=== PATIENT | male | born 1930 | race Caucasian/White ===

== ENCOUNTER 2017-06-22 09:12 | Observation (INO) | payer OTHER ==
[~2017-06-22] VITALS: Ht 185.4 cm; Wt 97.1 kg
[~2017-06-22 09:12] MED LIST: AMOXICILLIN500 M1 PO; ASPIRIN325 MG PO; ATORVASTATIN CA80 MG PO; AUGMENTIN875 MG PO; AVODART0.5 MG PO; CARVEDILOL12.5 MG PO; COREG25 M1 PO; COZAAR100 MG PO; Coreg PO; Cozaar PO; DEXLANT; DIGOX125 MCG PO; DOXYCYCLINE HY100 MG PO; ERYTHROMYC1 APPLICAT BOTH EYES; Ecotrin PO; LIPITOR80 MG PO; Lipitor PO; NORVASC5 MG PO; Norvasc PO; PAIN RELIEVER325 MG PO; PERCOCET 5/31 TABLET PO; PLAVIX75 MG PO; TAMSULOSIN HCL0.4 MG PO; VITAMIN D31000 UNI2 PO; VITAMIN D31000 UNIT PO; Vitamin D PO; XARELTO15 MG PO; Xarelto PO; ZOFRAN ODT4 MG PO
[2017-06-22 10:33] LABS: EOSINOPHIL (%) 3.3 % (0-5); EOSINOPHIL COUNT 0.2 K/uL (0-0.3); HEMATOCRIT 41.7 % (38.0-50.0); IMMATURE GRANULOCYTE (%) 0.1 % (0.0-0.7); INSTRUMENT ABS NEUTROPHIL CT 5.2 K/uL; LYMPHOCYTE COUNT 1.1 K/uL (1.0-2.8); MCH 29.7 PG (29.0-34.0); MCHC 33.1 G/DL (30.0-36.0); MCV 89.7 FL (86-99); MEAN PLAT.VOLUME 10.1 uM^3 (9.0-12.4); MONOCYTE (%) 7.1 % (3-12); MONOCYTE COUNT 0.5 K/uL (0-0.8); NEUTROPHIL (%) 73.8 % (45-76); NEUTROPHIL COUNT 5.2 K/uL (1.8-6.4); PLATELET COUNT 188 K/uL (156-360); RBC DIS.WIDTH-SD 45.5 % (39-53); RED BLOOD COUNT 4.65 M/uL (4.00-5.50)
[2017-06-22 10:38] LABS: INTER. NORMALIZED RATIO 1.4; PROTHROMBIN TIME 15.5 SEC (10.2-12.9)
[2017-06-22 10:43] LABS: CHLORIDE 106 mEq/L (99-109); POTASSIUM 3.9 mEq/L (3.7-5.4); SODIUM 140 mEq/L (136-147)
[2017-06-22 10:45] LABS: GLUCOSE 152 mg/dL (70-99)
[2017-06-22 10:46] LABS: ANION GAP 11 MEQ/L (2-14)
[2017-06-22 10:49] LABS: GFR ESTIMATE (CALCULATED) > 59 mL/min/; UREA NITROGEN (BUN) 20 mg/dL (9-23)
[2017-06-22 10:54] LABS: TROP-I INTERPRETATION NEGATIVE; TROPONIN-I 0.02 ng/mL (0.0-0.30)
[2017-06-22 12:31] LABS: HDL CHOLESTEROL 39 MG/DL (Desirable>=40); LDL CHOLESTEROL 33 mg/dL (Desirable<100); NON-HDL CHOLESTEROL 48 mg/dL (Desirable<160); TOTAL CHOLESTEROL 87 mg/dL (Desirable<200); TRIGLYCERIDES 76 MG/DL (Normal: <150)
[2017-06-22 13:02] LABS: Estimated Average Glucose 151 mg/dL (70-123); HEMOGLOBIN A1c (GLYCOHEMOGLOB) 6.9 % HGB (Below 5.7)
[2017-06-22 14:54] VITALS: BP 118/71
[2017-06-22] MEDS ORDERED: ELIQUIS5 MG PO (14:56)
[2017-06-22] MEDS ORDERED: FUROSEMIDE40 MG PO (14:59)
[2017-06-22] MEDS ORDERED: JANUVIA25 M1 PO (14:59)
[2017-06-22 15:31] LABS: TROP-I INTERPRETATION NEGATIVE; TROPONIN-I 0.02 ng/mL (0.0-0.30)
[2017-06-22] MEDS ORDERED: FINASTERIDE5 MG PO (16:08)
[2017-06-22 17:06] VITALS: BP 133/74
[2017-06-22 20:44] VITALS: BP 120/71
[2017-06-22 21:08] LABS: TROP-I INTERPRETATION NEGATIVE; TROPONIN-I 0.01 ng/mL (0.0-0.30)
[2017-06-22 23:54] VITALS: BP 117/58
[2017-06-23 04:29] VITALS: BP 141/78
[2017-06-23 07:56] VITALS: BP 154/71
[2017-06-23 08:27] LABS: POINT-OF-CARE METER ID UU13113700
[2017-06-23 11:13] VITALS: BP 110/59
[2017-06-23 13:07] LABS: POINT-OF-CARE METER ID UU13113831
== END 2017-06-23 15:21 | disposition home health service (06) ==
LOC: EME 09:12 → 5WEST 11:02 → EDOF 11:02 → ENRESERV 11:06 → 5WEST 16:22 → ENPENDDIS 06-23 → 5WEST 06-23 15:21
PROVIDERS: Emergency Medicine; Internal Medicine
DX: R55 Syncope and collapse (principal); G93.9 Disorder of brain, unspecified; I65.23 Occlusion and stenosis of bilateral carotid arteries; I10 Essential (primary) hypertension; I73.9 Peripheral vascular disease, unspecified; I48.0 Paroxysmal atrial fibrillation; I48.2 Chronic atrial fibrillation; E78.5 Hyperlipidemia, unspecified; K21.9 Gastro-esophageal reflux disease without esophagitis; H91.90 Unspecified hearing loss, unspecified ear; I34.0 Nonrheumatic mitral (valve) insufficiency; Z79.01 Long term (current) use of anticoagulants; Z95.820 Peripheral vascular angioplasty status with implants and grafts
CPT/HCPCS: 70450; 70551; 70553; 71010; 80048; 80061; 82948; 83036; 84484; 85025; 85610; 85730; 93005; 93306; 93880; 95819; G0378; G8978 GP CJ; G8979 GP CH; G8980 CJ; G8987 GO CI; G8988 GO CH; G8989 GO CI

== ENCOUNTER 2017-07-06 22:12 | Inpatient (IN) | payer OTHER ==
[~2017-07-06] VITALS: Ht 185.4 cm; Wt 90.3 kg
[~2017-07-06 22:12] MED LIST changes: +DECADRON4 MG PO; +ELIQUIS5 MG PO; +FLOMAX0.4 MG PO; +FUROSEMIDE40 MG PO; +JANUVIA25 M1 PO; +PRILOSEC20 MG PO; +PROSCAR5 MG PO; +SINGULAIR10 MG PO; -TAMSULOSIN HCL0.4 MG PO
[2017-07-07 08:00] VITALS: BP 129/79
[2017-07-07 08:07] LABS: POINT-OF-CARE METER ID UU14174212
[2017-07-07 17:31] LABS: POINT-OF-CARE METER ID UU13113675
[2017-07-07 17:53] LABS: ANION GAP 11 MEQ/L (2-14); CHLORIDE 98 MEQ/L (99-109); GFR ESTIMATE (CALCULATED) > 59 mL/min/; GLUCOSE 171 mg/dL (70-99); POTASSIUM 4.9 MEQ/L (3.7-5.4); SAMPLE HEMOLYSIS CHECK 2; SAMPLE ICTERIC CHECK 0; SAMPLE LIPEMIA CHECK 0; SODIUM 134 MEQ/L (136-147); UREA NITROGEN (BUN) 40 mg/dL (9-23)
[2017-07-07 19:42] VITALS: BP 153/89
[2017-07-07 20:00] VITALS: BP 151/79
[2017-07-07 21:00] VITALS: BP 133/98
[2017-07-07 21:09] LABS: METH RESISTANT S AUREUS PCR NEGATIVE (NEGATIVE)
[2017-07-07 21:11] LABS: PROBE CHECK PASS; SPECIMEN PROCESSING CONTROL PASS
[2017-07-07 22:00] VITALS: BP 150/90
[2017-07-07 23:00] VITALS: BP 145/86
[2017-07-08] VITALS (18 sets, daily range): BP systolic 90–150; BP diastolic 66–117
[2017-07-08 05:00] LABS: HEMATOCRIT 42.2 % (38.0-50.0); MCH 29.4 PG (29.0-34.0); MCHC 34.1 G/DL (30.0-36.0); MCV 86.3 FL (86-99); PLATELET COUNT 171 K/uL (156-360); RBC DIS.WIDTH-CV 13.7 % (11.8-14.6); RED BLOOD COUNT 4.89 M/uL (4.00-5.50); WHITE BLOOD COUNT 14.7 K/uL (4.1-10.2)
[2017-07-08] MEDS ORDERED: HYDROCODON-ACE1 EAC7 PO (16:39)
[2017-07-08] MEDS ORDERED: DECADRON4 MG PO (16:39)
== END 2017-07-08 18:15 | disposition home or self-care (01) | DRG 26 ==
LOC: ENRESERV 22:12 → CANRESERV 22:12 → 2SOUTH 07-07 06:54 → 4WEST 07-07 06:54 → ENRESERV 07-07 07:10 → CANRESERV 07-07 07:10 → 2SOUTH 07-07 09:00 → ENRESERV 07-07 17:34 → 4WEST 07-07 19:30
PROVIDERS: Neurological Surgery
PROC: 00B10ZZ Excision of Cerebral Meninges, Open Approach (ICD-10-PCS; principal; 2017-07-07)
DX: D32.0 Benign neoplasm of cerebral meninges (principal); I10 Essential (primary) hypertension; I73.9 Peripheral vascular disease, unspecified; I48.0 Paroxysmal atrial fibrillation; I48.2 Chronic atrial fibrillation; N40.0 Benign prostatic hyperplasia without lower urinary tract symptoms; I34.0 Nonrheumatic mitral (valve) insufficiency; I42.9 Cardiomyopathy, unspecified; E11.9 Type 2 diabetes mellitus without complications; H40.9 Unspecified glaucoma; J44.9 Chronic obstructive pulmonary disease, unspecified; K21.9 Gastro-esophageal reflux disease without esophagitis; Z86.79 Personal history of other diseases of the circulatory system; Z95.820 Peripheral vascular angioplasty status with implants and grafts; Z86.73 Personal history of transient ischemic attack (TIA), and cerebral infarction without residual deficits
CPT/HCPCS: 36415; 70450; 70460; 80048; 82948; 85025; 85027; 87641; 88307; C1713; J0131; J0360; J0690; J1100; J1170; J2405; J2710; J3010

== ENCOUNTER 2017-07-17 05:12 | Emergency (ER) | payer OTHER ==
[~2017-07-17] VITALS: Ht 185.4 cm; Wt 88.0 kg
[~2017-07-17 05:12] MED LIST changes: +HYDROCODON-ACE1 EAC7 PO
[2017-07-17 05:48] LABS: EOSINOPHIL (%) 2.7 % (0-5); EOSINOPHIL COUNT 0.4 K/uL (0-0.3); HEMATOCRIT 46.5 % (38.0-50.0); IMMATURE GRANULOCYTE (%) 2.1 % (0.0-0.7); IMMATURE GRANULOCYTE COUNT 0.3 K/uL; INSTRUMENT ABS NEUTROPHIL CT 11.2 K/uL; LYMPHOCYTE COUNT 1.4 K/uL (1.0-2.8); MCH 29.5 PG (29.0-34.0); MCHC 33.5 G/DL (30.0-36.0); MCV 88.1 FL (86-99); MEAN PLAT.VOLUME 11.3 uM^3 (9.0-12.4); MONOCYTE (%) 8.8 % (3-12); MONOCYTE COUNT 1.3 K/uL (0-0.8); NEUTROPHIL (%) 76.8 % (45-76); NEUTROPHIL COUNT 11.2 K/uL (1.8-6.4); PLATELET COUNT 126 K/uL (156-360); PTT 31.5 SEC (25-37); RBC DIS.WIDTH-CV 14.1 % (11.8-14.6); RBC DIS.WIDTH-SD 45.4 % (39-53); RED BLOOD COUNT 5.28 M/uL (4.00-5.50); WHITE BLOOD COUNT 14.6 K/uL (4.1-10.2)
[2017-07-17 05:51] LABS: CHLORIDE 101 mEq/L (99-109); POTASSIUM 4.3 mEq/L (3.7-5.4); SODIUM 134 mEq/L (136-147)
[2017-07-17 05:52] LABS: GLUCOSE 180 mg/dL (70-99)
[2017-07-17 05:54] LABS: ANION GAP 7 MEQ/L (2-14)
[2017-07-17 05:56] LABS: GFR ESTIMATE (CALCULATED) > 59 mL/min/
[2017-07-17 05:57] LABS: UREA NITROGEN (BUN) 31 mg/dL (9-23)
[2017-07-17 06:01] LABS: TROP-I INTERPRETATION NEGATIVE; TROPONIN-I 0.02 ng/mL (0.0-0.30)
[2017-07-17 06:29] LABS: PROTHROMBIN TIME 11.3 SEC (10.2-12.9)
[2017-07-17 07:42] VITALS: BP 128/74
== END 2017-07-17 07:43 | disposition home or self-care (01) ==
LOC: EME → EDBD 05:12 → EME 07:43
PROVIDERS: Emergency Medicine
DX: R00.2 Palpitations (principal); I48.91 Unspecified atrial fibrillation; I49.3 Ventricular premature depolarization; I10 Essential (primary) hypertension; E78.5 Hyperlipidemia, unspecified; Z87.442 Personal history of urinary calculi
CPT/HCPCS: 71010; 80048; 84484; 85025; 85610; 85730; 93005; 99281; 99285

== ENCOUNTER 2017-07-22 23:43 | Inpatient (IN) | payer OTHER ==
[~2017-07-22] VITALS: Ht 185.4 cm; Wt 106.0 kg
[2017-07-23] VITALS (16 sets, daily range): BP systolic 82–134; BP diastolic 53–80
[2017-07-23 00:30] LABS: CHLORIDE 106 mEq/L (99-109); POTASSIUM 4.3 mEq/L (3.7-5.4); SODIUM 136 mEq/L (136-147)
[2017-07-23 00:32] LABS: GLUCOSE 177 mg/dL (70-99)
[2017-07-23 00:33] LABS: ANION GAP 6 MEQ/L (2-14)
[2017-07-23 00:33] LABS: EOSINOPHIL (%) 2.3 % (0-5); EOSINOPHIL COUNT 0.3 K/uL (0-0.3); IMMATURE GRANULOCYTE (%) 0.4 % (0.0-0.7); IMMATURE GRANULOCYTE COUNT 0.1 K/uL; INSTRUMENT ABS NEUTROPHIL CT 8.8 K/uL; LYMPHOCYTE COUNT 1.3 K/uL (1.0-2.8); MCH 29.5 PG (29.0-34.0); MCV 89.2 FL (86-99); MEAN PLAT.VOLUME 10.8 uM^3 (9.0-12.4); NEUTROPHIL (%) 76.8 % (45-76); NEUTROPHIL COUNT 8.8 K/uL (1.8-6.4); PLATELET COUNT 112 K/uL (156-360); RBC DIS.WIDTH-CV 14.4 % (11.8-14.6); RBC DIS.WIDTH-SD 46.5 % (39-53); WHITE BLOOD COUNT 11.5 K/uL (4.1-10.2)
[2017-07-23 00:34] LABS: TOTAL BILIRUBIN 0.6 mg/dL (0.0-1.0)
[2017-07-23 00:35] LABS: ALKALINE PHOSPHATASE 31 IU/L (3-129)
[2017-07-23 00:36] LABS: GFR ESTIMATE (CALCULATED) > 59 mL/min/
[2017-07-23 00:37] LABS: UREA NITROGEN (BUN) 46 mg/dL (9-23)
[2017-07-23 00:41] LABS: TROP-I INTERPRETATION NEGATIVE; TROPONIN-I 0.01 ng/mL (0.0-0.30)
[2017-07-23 01:19] LABS: HDL CHOLESTEROL 32 MG/DL (Desirable>=40); LDL CHOLESTEROL 26 mg/dL (Desirable<100); NON-HDL CHOLESTEROL 46 mg/dL (Desirable<160); TOTAL CHOLESTEROL 78 mg/dL (Desirable<200); TRIGLYCERIDES 100 MG/DL (Normal: <150)
[2017-07-23 01:22] LABS: ADD MIUA? YES; BILIRUBIN NEGATIVE; BLOOD MODERATE; COLOR YELLOW ((YELLOW)); GLUCOSE (STRIP) NEGATIVE; KETONES NEGATIVE; LEUKOCYTES NEGATIVE; NITRITE NEGATIVE; PROTEIN (STRIP) NEGATIVE; UROBILINOGEN 0.2 MG/DL (0.2-1.0)
[2017-07-23] MEDS ORDERED: TYLENOL PM EX-1 EACH PO (01:26)
[2017-07-23] MEDS ORDERED: ELIQUIS5 MG PO (01:27)
[2017-07-23 01:32] LABS: BACTERIA NONE SEEN /HPF; EPITHELIAL CELLS RARE /HPF; MUCUS TRACE /LPF; UCUL ADDED? NO; WHITE BLOOD CELLS 0-5 /HPF (0-5)
[2017-07-23 01:55] LABS: SPECIFIC GRAVITY 1.051 (1.000-1.030)
[2017-07-23 03:24] LABS: HEMATOCRIT 32.6 % (38.0-50.0); MCH 29.6 PG (29.0-34.0); MCHC 33.1 G/DL (30.0-36.0); MCV 89.3 FL (86-99); MEAN PLAT.VOLUME 10.6 uM^3 (9.0-12.4); PLATELET COUNT 107 K/uL (156-360); RBC DIS.WIDTH-CV 14.4 % (11.8-14.6); RED BLOOD COUNT 3.65 M/uL (4.00-5.50); WHITE BLOOD COUNT 11.4 K/uL (4.1-10.2)
[2017-07-23 06:26] LABS: SAMPLE HEMOLYSIS CHECK 0; SAMPLE ICTERIC CHECK 0; SAMPLE LIPEMIA CHECK 0
[2017-07-23 06:41] LABS: INTERNAL CONTROL VALID? YES
[2017-07-23 06:46] LABS: Estimated Average Glucose 177 mg/dL (70-123); HEMOGLOBIN A1c (GLYCOHEMOGLOB) 7.8 % HGB (Below 5.7)
[2017-07-23 07:51] LABS: FERRITIN 238 NG/ML (22-322)
[2017-07-23 08:43] LABS: POINT-OF-CARE METER ID UU13113717
[2017-07-23 10:44] LABS: POINT-OF-CARE METER ID UU14174225
[2017-07-23 10:45] LABS: HEMATOCRIT 27.7 % (38.0-50.0); MCH 30.4 PG (29.0-34.0); MCHC 33.9 G/DL (30.0-36.0); MCV 89.6 FL (86-99); MEAN PLAT.VOLUME 10.7 uM^3 (9.0-12.4); PLATELET COUNT 109 K/uL (156-360); RBC DIS.WIDTH-CV 14.8 % (11.8-14.6); RBC DIS.WIDTH-SD 47.6 % (39-53); RED BLOOD COUNT 3.09 M/uL (4.00-5.50); WHITE BLOOD COUNT 13.3 K/uL (4.1-10.2)
[2017-07-23 10:51] LABS: INTER. NORMALIZED RATIO 1.2; PROTHROMBIN TIME 13.3 SEC (10.2-12.9)
[2017-07-23 10:53] LABS: CHLORIDE 111 mEq/L (99-109); POTASSIUM 4.9 mEq/L (3.7-5.4); SODIUM 140 mEq/L (136-147)
[2017-07-23 10:54] LABS: PTT 30.9 SEC (25-37)
[2017-07-23 10:55] LABS: GLUCOSE 192 mg/dL (70-99)
[2017-07-23 10:57] LABS: ANION GAP 7 MEQ/L (2-14); TOTAL BILIRUBIN 0.7 mg/dL (0.0-1.0)
[2017-07-23 10:59] LABS: ALKALINE PHOSPHATASE 27 IU/L (3-129); GFR ESTIMATE (CALCULATED) > 59 mL/min/
[2017-07-23 11:00] LABS: UREA NITROGEN (BUN) 49 mg/dL (9-23)
[2017-07-23 14:59] LABS: HEMATOCRIT 24.2 % (38.0-50.0); MCH 29.1 PG (29.0-34.0); MCHC 32.2 G/DL (30.0-36.0); MCV 90.3 FL (86-99); MEAN PLAT.VOLUME 10.9 uM^3 (9.0-12.4); PLATELET COUNT 106 K/uL (156-360); RBC DIS.WIDTH-CV 14.8 % (11.8-14.6); RBC DIS.WIDTH-SD 48.4 % (39-53); RED BLOOD COUNT 2.68 M/uL (4.00-5.50)
[2017-07-23 17:33] LABS: INTER. NORMALIZED RATIO 1.2; PROTHROMBIN TIME 14.2 SEC (10.2-12.9)
[2017-07-23 17:36] LABS: PTT 30.4 SEC (25-37)
[2017-07-23 18:54] LABS: METH RESISTANT S AUREUS PCR POSITIVE (NEGATIVE)
[2017-07-23 18:57] LABS: PROBE CHECK PASS
[2017-07-23 20:47] LABS: HEMATOCRIT 28.2 % (38.0-50.0); MCH 29.6 PG (29.0-34.0); MEAN PLAT.VOLUME 10.9 uM^3 (9.0-12.4); PLATELET COUNT 93 K/uL (156-360); RBC DIS.WIDTH-CV 15.1 % (11.8-14.6); RBC DIS.WIDTH-SD 47.6 % (39-53); WHITE BLOOD COUNT 11.6 K/uL (4.1-10.2)
[2017-07-23 20:48] LABS: RED BLOOD COUNT 3.24 M/uL (4.00-5.50)
[2017-07-24] VITALS (24 sets, daily range): BP systolic 47–139; BP diastolic 24–100
[2017-07-24 00:56] LABS: HEMATOCRIT 26.9 % (38.0-50.0); MCH 29.9 PG (29.0-34.0); MCHC 33.8 G/DL (30.0-36.0); MCV 88.5 FL (86-99); MEAN PLAT.VOLUME 10.6 uM^3 (9.0-12.4); NRBC (%) 0.1 /100 WBC (0-0); PLATELET COUNT 103 K/uL (156-360); RBC DIS.WIDTH-CV 15.9 % (11.8-14.6); RBC DIS.WIDTH-SD 50.1 % (39-53); RED BLOOD COUNT 3.04 M/uL (4.00-5.50); WHITE BLOOD COUNT 15.5 K/uL (4.1-10.2)
[2017-07-24 04:22] LABS: HEMATOCRIT 26.4 % (38.0-50.0); MCH 29.5 PG (29.0-34.0); MCHC 33.3 G/DL (30.0-36.0); MCV 88.6 FL (86-99); MEAN PLAT.VOLUME 11.3 uM^3 (9.0-12.4); NRBC (%) 0.1 /100 WBC (0-0); PLATELET COUNT 104 K/uL (156-360); RBC DIS.WIDTH-CV 16.1 % (11.8-14.6); RBC DIS.WIDTH-SD 51.7 % (39-53); RED BLOOD COUNT 2.98 M/uL (4.00-5.50); WHITE BLOOD COUNT 16.9 K/uL (4.1-10.2)
[2017-07-24 04:37] LABS: CHLORIDE 118 mEq/L (99-109); MAGNESIUM 1.5 mg/dL (1.3-2.7); POTASSIUM 5.4 mEq/L (3.7-5.4); SODIUM 142 mEq/L (136-147)
[2017-07-24 04:39] LABS: GLUCOSE 206 mg/dL (70-99)
[2017-07-24 04:40] LABS: ANION GAP 5 MEQ/L (2-14)
[2017-07-24 04:43] LABS: GFR ESTIMATE (CALCULATED) > 59 mL/min/
[2017-07-24 04:44] LABS: UREA NITROGEN (BUN) 61 mg/dL (9-23)
[2017-07-24 09:21] LABS: HEMATOCRIT 23.9 % (38.0-50.0); MCV 89.5 FL (86-99); POINT-OF-CARE METER ID UU14314083
[2017-07-24 12:44] LABS: POINT-OF-CARE METER ID UU14314083
[2017-07-24 13:13] LABS: HEMATOCRIT 23.3 % (38.0-50.0); MCV 90.3 FL (86-99)
[2017-07-24 16:41] LABS: POINT-OF-CARE METER ID UU13113675
[2017-07-24 17:45] LABS: MCV 89.1 FL (86-99)
[2017-07-24 18:29] LABS: POINT-OF-CARE METER ID UU14162636
[2017-07-24 23:41] LABS: POINT-OF-CARE METER ID UU14162636; POINT-OF-CARE USER ID PHATLC
[2017-07-25] VITALS (13 sets, daily range): BP systolic 96–136; BP diastolic 54–69
[2017-07-25 06:05] LABS: POINT-OF-CARE METER ID UU14208751; POINT-OF-CARE USER ID PHATLC
[2017-07-25 07:44] LABS: EOSINOPHIL (%) 0.4 % (0-5); EOSINOPHIL COUNT 0.1 K/uL (0-0.3); HEMATOCRIT 24.5 % (38.0-50.0); IMMATURE GRANULOCYTE COUNT 0.2 K/uL; LYMPHOCYTE COUNT 1.3 K/uL (1.0-2.8); MCH 30.3 PG (29.0-34.0); MCHC 33.9 G/DL (30.0-36.0); MCV 89.4 FL (86-99); MEAN PLAT.VOLUME 10.3 uM^3 (9.0-12.4); MONOCYTE (%) 8.9 % (3-12); MONOCYTE COUNT 1.3 K/uL (0-0.8); NEUTROPHIL (%) 80.7 % (45-76); NRBC (%) 0.7 /100 WBC (0-0); PLATELET COUNT 86 K/uL (156-360); RBC DIS.WIDTH-CV 16.8 % (11.8-14.6); RBC DIS.WIDTH-SD 51.9 % (39-53); RED BLOOD COUNT 2.74 M/uL (4.00-5.50); WHITE BLOOD COUNT 14.9 K/uL (4.1-10.2)
[2017-07-25 07:56] LABS: INTER. NORMALIZED RATIO 1.2; PROTHROMBIN TIME 14.2 SEC (10.2-12.9)
[2017-07-25 07:59] LABS: PTT 28.7 SEC (25-37)
[2017-07-25 08:09] LABS: ANION GAP 7 MEQ/L (2-14); CHLORIDE 118 MEQ/L (99-109); GFR ESTIMATE (CALCULATED) > 59 mL/min/; GLUCOSE 162 mg/dL (70-99); SAMPLE HEMOLYSIS CHECK 0; SAMPLE ICTERIC CHECK 0; SAMPLE LIPEMIA CHECK 0; SODIUM 147 MEQ/L (136-147); UREA NITROGEN (BUN) 54 mg/dL (9-23)
[2017-07-25 08:13] LABS: POTASSIUM 4.3 MEQ/L (3.7-5.4)
[2017-07-25 13:16] LABS: POINT-OF-CARE METER ID UU14208751
[2017-07-25 16:19] LABS: MCV 90.6 FL (86-99)
[2017-07-25 17:59] LABS: POINT-OF-CARE METER ID UU14174225
[2017-07-25 23:59] LABS: POINT-OF-CARE METER ID UU14174225
[2017-07-26 00:07] VITALS: BP 111/58
[2017-07-26 00:41] LABS: HEMATOCRIT 23.2 % (38.0-50.0); MCV 87.5 FL (86-99)
[2017-07-26 03:30] VITALS: BP 106/61
[2017-07-26 06:11] LABS: POINT-OF-CARE METER ID UU14174225
[2017-07-26 06:41] LABS: HEMATOCRIT 22.9 % (38.0-50.0); MCV 87.4 FL (86-99)
[2017-07-26 07:28] VITALS: BP 110/64
[2017-07-26 07:36] LABS: ANION GAP 4 MEQ/L (2-14); CHLORIDE 115 MEQ/L (99-109); POTASSIUM 3.7 MEQ/L (3.7-5.4); SAMPLE HEMOLYSIS CHECK 0; SAMPLE ICTERIC CHECK 0; SAMPLE LIPEMIA CHECK 0; SODIUM 141 MEQ/L (136-147)
[2017-07-26 07:42] LABS: GFR ESTIMATE (CALCULATED) > 59 mL/min/; GLUCOSE 134 mg/dL (70-99); UREA NITROGEN (BUN) 39 mg/dL (9-23)
[2017-07-26 08:26] LABS: POINT-OF-CARE METER ID UU13113717
[2017-07-26 08:31] VITALS: BP 114/61
[2017-07-26 11:41] LABS: POINT-OF-CARE METER ID UU14174225
[2017-07-26 13:51] VITALS: BP 119/57
[2017-07-26 14:55] LABS: HEMATOCRIT 23.1 % (38.0-50.0); MCV 90.6 FL (86-99)
[2017-07-26 17:13] LABS: POINT-OF-CARE METER ID UU14174225
[2017-07-27 00:18] LABS: POINT-OF-CARE METER ID UU14174225
[2017-07-27 00:42] VITALS: BP 110/59
[2017-07-27 02:54] LABS: HEMATOCRIT 22.5 % (38.0-50.0); MCV 90.7 FL (86-99)
[2017-07-27 05:35] LABS: POINT-OF-CARE METER ID UU14174225
[2017-07-27 07:08] LABS: POINT-OF-CARE METER ID UU13113717
[2017-07-27 07:09] VITALS: BP 118/61
[2017-07-27 11:18] LABS: POINT-OF-CARE METER ID UU13113717
[2017-07-27 14:38] LABS: HEMATOCRIT 26.7 % (38.0-50.0); MCV 91.8 FL (86-99)
[2017-07-27 15:27] VITALS: BP 116/55
[2017-07-27 16:22] LABS: POINT-OF-CARE METER ID UU14174225
[2017-07-27 17:39] VITALS: BP 122/59
[2017-07-27 20:39] LABS: POINT-OF-CARE METER ID UU14174225
[2017-07-28] VITALS (7 sets, daily range): BP systolic 113–156; BP diastolic 59–90
[2017-07-28 07:14] LABS: HEMATOCRIT 23.2 % (38.0-50.0)
[2017-07-28 07:15] LABS: POINT-OF-CARE METER ID UU13113717
[2017-07-28 12:50] LABS: POINT-OF-CARE METER ID UU13113717
[2017-07-28 16:41] LABS: POINT-OF-CARE METER ID UU13113717
[2017-07-28 21:20] LABS: POINT-OF-CARE METER ID UU13113717
[2017-07-29 04:32] VITALS: BP 120/63
[2017-07-29 07:52] VITALS: BP 149/74
[2017-07-29 07:52] LABS: POINT-OF-CARE METER ID UU14174225
[2017-07-29 11:16] LABS: EOSINOPHIL (%) 8.1 % (0-5); EOSINOPHIL COUNT 0.5 K/uL (0-0.3); HEMATOCRIT 26.7 % (38.0-50.0); IMMATURE GRANULOCYTE (%) 1.4 % (0.0-0.7); IMMATURE GRANULOCYTE COUNT 0.1 K/uL; INSTRUMENT ABS NEUTROPHIL CT 4.1 K/uL; LYMPHOCYTE COUNT 0.7 K/uL (1.0-2.8); MCH 29.8 PG (29.0-34.0); MCHC 31.8 G/DL (30.0-36.0); MCV 93.7 FL (86-99); MEAN PLAT.VOLUME 9.7 uM^3 (9.0-12.4); MONOCYTE (%) 8.7 % (3-12); MONOCYTE COUNT 0.5 K/uL (0-0.8); NEUTROPHIL (%) 69.9 % (45-76); NEUTROPHIL COUNT 4.1 K/uL (1.8-6.4); NRBC (%) 0.3 /100 WBC (0-0); PLATELET COUNT 137 K/uL (156-360); RBC DIS.WIDTH-CV 19.5 % (11.8-14.6); RBC DIS.WIDTH-SD 57.6 % (39-53); RED BLOOD COUNT 2.85 M/uL (4.00-5.50); WHITE BLOOD COUNT 5.9 K/uL (4.1-10.2)
[2017-07-29 12:49] LABS: POINT-OF-CARE METER ID UU14174225
[2017-07-29 17:14] VITALS: BP 134/72
[2017-07-29 17:33] LABS: POINT-OF-CARE METER ID UU14174225
[2017-07-29] MEDS ORDERED: FERROUS SULFAT325 MG PO (18:29)
[2017-07-29] MEDS ORDERED: PANTOPRAZOLE SO40 MG PO (18:30)
[2017-07-29] MEDS ORDERED: NOVOLOG PE100 UNITS/ SC (18:31)
[2017-07-29 20:29] VITALS: BP 108/58
[2017-07-29 21:18] LABS: POINT-OF-CARE METER ID UU14174225
[2017-07-30 00:25] VITALS: BP 118/60
[2017-07-30 04:27] VITALS: BP 109/56
[2017-07-30 07:00] LABS: EOSINOPHIL (%) 11.1 % (0-5); EOSINOPHIL COUNT 0.5 K/uL (0-0.3); HEMATOCRIT 26.2 % (38.0-50.0); IMMATURE GRANULOCYTE (%) 2.1 % (0.0-0.7); IMMATURE GRANULOCYTE COUNT 0.1 K/uL; INSTRUMENT ABS NEUTROPHIL CT 2.8 K/uL; LYMPHOCYTE COUNT 0.8 K/uL (1.0-2.8); MCH 29.8 PG (29.0-34.0); MCHC 32.1 G/DL (30.0-36.0); MCV 92.9 FL (86-99); MEAN PLAT.VOLUME 9.6 uM^3 (9.0-12.4); MONOCYTE (%) 12.5 % (3-12); MONOCYTE COUNT 0.6 K/uL (0-0.8); NEUTROPHIL (%) 58.1 % (45-76); NEUTROPHIL COUNT 2.8 K/uL (1.8-6.4); PLATELET COUNT 152 K/uL (156-360); RBC DIS.WIDTH-CV 19.3 % (11.8-14.6); RBC DIS.WIDTH-SD 58.4 % (39-53); RED BLOOD COUNT 2.82 M/uL (4.00-5.50); WHITE BLOOD COUNT 4.9 K/uL (4.1-10.2)
[2017-07-30 08:01] LABS: POINT-OF-CARE METER ID UU13113717
[2017-07-30 08:50] VITALS: BP 111/57
== END 2017-07-30 11:31 | DRG 64 ==
LOC: EME → EDBD 23:43 → 4WEST 07-23 02:37 → 5SOUTH 07-23 02:37 → EDOF 07-23 02:37 → ENRESERV 07-23 02:37 → 5SOUTH 07-23 04:01 → ENRESERV 07-23 11:10 → 4EAST 07-23 11:12 → 4WEST 07-23 16:31 → ENRESERV 07-25 14:44 → 5SOUTH 07-25 17:13
PROVIDERS: Emergency Medicine; Internal Medicine; Internal Medicine Critical Care Medicine; Surgery
PROC: 30233N1 Transfusion of Nonautologous Red Blood Cells into Peripheral Vein, Percutaneous Approach (ICD-10-PCS; principal; 2017-07-23)
PROC: 0W3P8ZZ Control Bleeding in Gastrointestinal Tract, Via Natural or Artificial Opening Endoscopic (ICD-10-PCS; 2017-07-24)
PROC: 0DJ08ZZ Inspection of Upper Intestinal Tract, Via Natural or Artificial Opening Endoscopic (ICD-10-PCS; 2017-07-26)
DX: I63.9 Cerebral infarction, unspecified (principal); G81.91 Hemiplegia, unspecified affecting right dominant side; K26.4 Chronic or unspecified duodenal ulcer with hemorrhage; I48.0 Paroxysmal atrial fibrillation; D62 Acute posthemorrhagic anemia; D69.6 Thrombocytopenia, unspecified; I95.9 Hypotension, unspecified; E11.51 Type 2 diabetes mellitus with diabetic peripheral angiopathy without gangrene; K29.80 Duodenitis without bleeding; I10 Essential (primary) hypertension; K92.1 Melena; R79.89 Other specified abnormal findings of blood chemistry; J44.9 Chronic obstructive pulmonary disease, unspecified; E78.5 Hyperlipidemia, unspecified; I34.0 Nonrheumatic mitral (valve) insufficiency; K21.9 Gastro-esophageal reflux disease without esophagitis; K44.9 Diaphragmatic hernia without obstruction or gangrene; R47.1 Dysarthria and anarthria; R29.708 NIHSS score 8; Z79.01 Long term (current) use of anticoagulants; Z79.84 Long term (current) use of oral hypoglycemic drugs; Z86.011 Personal history of benign neoplasm of the brain; Z86.79 Personal history of other diseases of the circulatory system; Z87.442 Personal history of urinary calculi
CPT/HCPCS: 70450; 70496; 70498; 70551; 71010; 71020; 80048; 80053; 80061; 81003; 82272; 82330; 82728; 82948; 83036; 83735; 84100; 84466; 84484; 85014; 85018; 85025; 85027; 85610; 85730; 86850; 86900; 86901; 86920; 87641; 92526 GN; 92610 GN; 93005; 97530 GO; 99281; 99285; C9113; J0610; J1160; J1815; J2060; J2405; J7030; J7050; P9016

== ENCOUNTER 2017-07-30 09:54 | Inpatient (IN) | payer OTHER ==
[~2017-07-30] VITALS: Ht 185.4 cm; Wt 96.6 kg
[~2017-07-30 09:54] MED LIST changes: +FERROUS SULFAT325 MG PO; +NOVOLOG PE100 UNITS/ SC; +PANTOPRAZOLE SO40 MG PO; +TYLENOL PM EX-1 EACH PO
[2017-07-30 11:54] VITALS: BP 115/58
[2017-07-30 15:00] VITALS: BP 128/62
[2017-07-31 00:16] VITALS: BP 126/60
[2017-07-31 05:15] VITALS: BP 125/66
[2017-07-31 06:09] LABS: HEMATOCRIT 24.1 % (38.0-50.0); MCH 29.9 PG (29.0-34.0); MCHC 32.4 G/DL (30.0-36.0); MCV 92.3 FL (86-99); MEAN PLAT.VOLUME 9.5 uM^3 (9.0-12.4); PLATELET COUNT 175 K/uL (156-360); RBC DIS.WIDTH-CV 18.6 % (11.8-14.6); RBC DIS.WIDTH-SD 57.1 % (39-53); RED BLOOD COUNT 2.61 M/uL (4.00-5.50); WHITE BLOOD COUNT 4.8 K/uL (4.1-10.2)
[2017-07-31 07:00] LABS: POINT-OF-CARE METER ID UU13113720; POINT-OF-CARE USER ID ENVGAF
[2017-07-31 07:51] LABS: ALKALINE PHOSPHATASE 25 IU/L (3-129); CHLORIDE 108 MEQ/L (99-109); GLUCOSE 123 mg/dL (70-99); POTASSIUM 4.1 MEQ/L (3.7-5.4); SAMPLE HEMOLYSIS CHECK 0; SAMPLE ICTERIC CHECK 0; SAMPLE LIPEMIA CHECK 0; SODIUM 139 MEQ/L (136-147); TOTAL BILIRUBIN 0.4 MG/DL (0.0-1.0); UREA NITROGEN (BUN) 22 mg/dL (9-23)
[2017-07-31 08:18] LABS: GFR ESTIMATE (CALCULATED) > 59 mL/min/
[2017-07-31 08:23] LABS: ANION GAP 4 MEQ/L (2-14)
[2017-07-31 15:15] VITALS: BP 128/73
[2017-08-01 05:16] VITALS: BP 129/67
[2017-08-01 07:20] LABS: HEMATOCRIT 25.5 % (38.0-50.0); MCH 28.8 PG (29.0-34.0); MCHC 31.4 G/DL (30.0-36.0); MCV 91.7 FL (86-99); MEAN PLAT.VOLUME 9.5 uM^3 (9.0-12.4); PLATELET COUNT 233 K/uL (156-360); RBC DIS.WIDTH-CV 18.4 % (11.8-14.6); RBC DIS.WIDTH-SD 57.6 % (39-53); RED BLOOD COUNT 2.78 M/uL (4.00-5.50); WHITE BLOOD COUNT 4.6 K/uL (4.1-10.2)
[2017-08-01 15:26] LABS: POINT-OF-CARE METER ID UU14174215
[2017-08-01 15:32] VITALS: BP 120/62
[2017-08-02 06:14] VITALS: BP 129/63
[2017-08-02 06:26] LABS: HEMATOCRIT 25.6 % (38.0-50.0); MCH 29.6 PG (29.0-34.0); MCHC 31.6 G/DL (30.0-36.0); MCV 93.4 FL (86-99); MEAN PLAT.VOLUME 9.6 uM^3 (9.0-12.4); PLATELET COUNT 234 K/uL (156-360); RBC DIS.WIDTH-CV 18.2 % (11.8-14.6); RBC DIS.WIDTH-SD 57.4 % (39-53); RED BLOOD COUNT 2.74 M/uL (4.00-5.50); WHITE BLOOD COUNT 4.8 K/uL (4.1-10.2)
[2017-08-02 07:25] LABS: POINT-OF-CARE METER ID UU13113720
[2017-08-02 15:24] VITALS: BP 109/58
[2017-08-03 06:08] VITALS: BP 129/65
[2017-08-03 07:30] LABS: POINT-OF-CARE METER ID UU14174215
[2017-08-03 07:46] LABS: HEMATOCRIT 26.1 % (38.0-50.0); MCH 29.6 PG (29.0-34.0); MCHC 31.8 G/DL (30.0-36.0); MCV 93.2 FL (86-99); MEAN PLAT.VOLUME 9.4 uM^3 (9.0-12.4); PLATELET COUNT 259 K/uL (156-360); RBC DIS.WIDTH-CV 18.3 % (11.8-14.6)
[2017-08-03 15:14] VITALS: BP 107/56
[2017-08-04 05:24] LABS: HEMATOCRIT 26.9 % (38.0-50.0); IMM.RETIC FRACTION 27.6 % (3-19); MCH 28.5 PG (29.0-34.0); MCHC 30.5 G/DL (30.0-36.0); MCV 93.4 FL (86-99); MEAN PLAT.VOLUME 9.5 uM^3 (9.0-12.4); PLATELET COUNT 275 K/uL (156-360); RBC DIS.WIDTH-CV 17.8 % (11.8-14.6); RBC DIS.WIDTH-SD 57.9 % (39-53); RED BLOOD COUNT 2.88 M/uL (4.00-5.50); RETIC HGB EQUIVALENT 26.7 (28-36); RETICULOCYTE COUNT 5.8 % (0.5-1.8)
[2017-08-04 05:25] VITALS: BP 107/53
[2017-08-04 07:02] LABS: POINT-OF-CARE METER ID UU14174215; POINT-OF-CARE USER ID ENVGAF
[2017-08-04 07:15] VITALS: BP 124/60
[2017-08-04 15:26] VITALS: BP 116/66
[2017-08-05 05:16] VITALS: BP 116/58
[2017-08-05 07:08] LABS: POINT-OF-CARE METER ID UU14174215; POINT-OF-CARE USER ID ENVGAF
[2017-08-05 07:22] LABS: HEMATOCRIT 27.7 % (38.0-50.0); MCH 29.1 PG (29.0-34.0); MCV 93.6 FL (86-99); MEAN PLAT.VOLUME 9.2 uM^3 (9.0-12.4); PLATELET COUNT 281 K/uL (156-360); RBC DIS.WIDTH-CV 18.3 % (11.8-14.6); RBC DIS.WIDTH-SD 58.5 % (39-53); RED BLOOD COUNT 2.96 M/uL (4.00-5.50); WHITE BLOOD COUNT 5.8 K/uL (4.1-10.2)
[2017-08-05 08:30] VITALS: BP 116/58
[2017-08-05 17:02] VITALS: BP 119/66
[2017-08-06 04:47] VITALS: BP 120/62
[2017-08-06 10:58] LABS: POINT-OF-CARE METER ID UU14174215; POINT-OF-CARE USER ID 609231305
[2017-08-06 15:30] VITALS: BP 116/55
[2017-08-07 05:08] VITALS: BP 107/51
[2017-08-07 07:23] LABS: HEMATOCRIT 28.3 % (38.0-50.0); MCH 28.4 PG (29.0-34.0); MCHC 30.7 G/DL (30.0-36.0); MCV 92.5 FL (86-99); MEAN PLAT.VOLUME 9.3 uM^3 (9.0-12.4); PLATELET COUNT 300 K/uL (156-360); RBC DIS.WIDTH-CV 17.9 % (11.8-14.6); RBC DIS.WIDTH-SD 58.9 % (39-53); RED BLOOD COUNT 3.06 M/uL (4.00-5.50); WHITE BLOOD COUNT 6.7 K/uL (4.1-10.2)
[2017-08-07 07:50] LABS: ALKALINE PHOSPHATASE 38 IU/L (3-129); ANION GAP 10 MEQ/L (2-14); CHLORIDE 107 MEQ/L (99-109); GFR ESTIMATE (CALCULATED) > 59 mL/min/ (58.99-99999); GLUCOSE 107 mg/dL (70-99); POTASSIUM 4.1 MEQ/L (3.7-5.4); SAMPLE HEMOLYSIS CHECK 0; SAMPLE ICTERIC CHECK 0; SAMPLE LIPEMIA CHECK 0; SODIUM 143 MEQ/L (136-147); TOTAL BILIRUBIN 0.5 MG/DL (0.0-1.0); UREA NITROGEN (BUN) 17 mg/dL (9-23)
[2017-08-07 08:25] LABS: POINT-OF-CARE METER ID UU13113720; POINT-OF-CARE USER ID 610211320
[2017-08-07 15:57] VITALS: BP 110/61
[2017-08-08 06:18] VITALS: BP 116/79
[2017-08-08 08:01] LABS: POINT-OF-CARE METER ID UU14174215
[2017-08-08 15:58] VITALS: BP 120/60
[2017-08-09 04:56] LABS: HEMATOCRIT 27.8 % (38.0-50.0); MCH 28.1 PG (29.0-34.0); MCHC 30.6 G/DL (30.0-36.0); MCV 92.1 FL (86-99); MEAN PLAT.VOLUME 9.3 uM^3 (9.0-12.4); PLATELET COUNT 280 K/uL (156-360); RBC DIS.WIDTH-CV 17.6 % (11.8-14.6); RBC DIS.WIDTH-SD 57.5 % (39-53); RED BLOOD COUNT 3.02 M/uL (4.00-5.50); WHITE BLOOD COUNT 6.6 K/uL (4.1-10.2)
[2017-08-09 05:03] VITALS: BP 129/64
[2017-08-09 05:12] LABS: CHLORIDE 109 mEq/L (99-109); POTASSIUM 3.9 mEq/L (3.7-5.4); SODIUM 144 mEq/L (136-147)
[2017-08-09 05:14] LABS: GLUCOSE 105 mg/dL (70-99)
[2017-08-09 05:15] LABS: ANION GAP 8 MEQ/L (2-14)
[2017-08-09 05:18] LABS: GFR ESTIMATE (CALCULATED) > 59 mL/min/ (58.99-99999)
[2017-08-09 05:19] LABS: UREA NITROGEN (BUN) 13 mg/dL (9-23)
[2017-08-09 06:35] LABS: POINT-OF-CARE METER ID UU13113720
[2017-08-09] MEDS ORDERED: COREG25 M1 PO (11:32)
[2017-08-09] MEDS ORDERED: ATORVASTATIN CA80 MG PO (11:32)
[2017-08-09] MEDS ORDERED: JANUVIA25 M1 PO (11:32)
[2017-08-09] MEDS ORDERED: GABAPENTIN100 MG PO (11:32)
[2017-08-09] MEDS ORDERED: VITAMIN B-6100 MG PO (11:32)
[2017-08-09] MEDS ORDERED: SINGULAIR10 MG PO (11:32)
[2017-08-09] MEDS ORDERED: PANTOPRAZOLE SO40 MG PO (11:32)
[2017-08-09] MEDS ORDERED: ESCITALOPRAM OXA5 MG PO (11:32)
[2017-08-09] MEDS ORDERED: Tums,OsCal PO (11:32)
[2017-08-09] MEDS ORDERED: FERROUS SULFAT325 MG PO (11:32)
[2017-08-09] MEDS ORDERED: FLOMAX0.4 MG PO (11:32)
[2017-08-09] MEDS ORDERED: ELIQUIS5 MG PO (11:32)
== END 2017-08-09 14:52 | disposition home health service (06) | DRG 57 ==
LOC: 3WEST 09:54 → ENPENDDIS 08-08 → EDPENDDISDT 08-09 → 3WEST 08-09 14:52 → EDPENDDISDT 08-10
PROVIDERS: Internal Medicine; Physical Medicine & Rehabilitation Pain Medicine
PROC: F07M0ZZ Range of Motion and Joint Mobility Treatment of Musculoskeletal System - Whole Body (ICD-10-PCS; principal; 2017-07-30)
DX: I69.351 Hemiplegia and hemiparesis following cerebral infarction affecting right dominant side (principal); I48.91 Unspecified atrial fibrillation; I10 Essential (primary) hypertension; E11.65 Type 2 diabetes mellitus with hyperglycemia; K26.9 Duodenal ulcer, unspecified as acute or chronic, without hemorrhage or perforation; D32.9 Benign neoplasm of meninges, unspecified; K29.80 Duodenitis without bleeding; E83.51 Hypocalcemia; R53.1 Weakness; E11.51 Type 2 diabetes mellitus with diabetic peripheral angiopathy without gangrene; G62.9 Polyneuropathy, unspecified; H91.90 Unspecified hearing loss, unspecified ear; R42 Dizziness and giddiness; D50.0 Iron deficiency anemia secondary to blood loss (chronic); E77.8 Other disorders of glycoprotein metabolism; E88.09 Other disorders of plasma-protein metabolism, not elsewhere classified; D69.6 Thrombocytopenia, unspecified; Z82.3 Family history of stroke; Z86.011 Personal history of benign neoplasm of the brain; Z79.899 Other long term (current) drug therapy; Z86.79 Personal history of other diseases of the circulatory system
CPT/HCPCS: 80048; 80053; 82948; 85027; 85045; 97110 GO; 97530 GP